=== PATIENT | female | born 1955 | race Caucasian/White ===

== ENCOUNTER 2020-01-12 10:16 | Emergency (ER) | payer OTHER, MEDICAID, SELFPAY ==
[~2020-01-12] VITALS: Ht 162.6 cm; Wt 54.4 kg
[2020-01-12 10:48] VITALS: BP_SYST 118
--- NOTE | 2020-01-12 11:14 | NUR ---
Patient to ER bed 03 to gown for evaluation. Side rails up.
--- NOTE | 2020-01-12 11:30 | NUR ---
Pt came to ER via [facility] ambulance for congestion and low O2 saturation. Pt was placed on 5L O2 via nasal cannula by medics, O2 sat WNL.
[2020-01-12 11:35] LABS: BASOPHILS % (AUTO) 0.2 % (0.0-2.0); HEMATOCRIT 45.1 % (36-48); LYMPHOCYTES # (AUTO) 0.7 K/uL (1.0-5.5); LYMPHOCYTES % (AUTO) 5.1 % (20.5-51.5); MEAN CORPUSCULAR HEMOGLOBIN 30 pg (27-31); MEAN CORPUSCULAR HGB CONC 33 % (32-36); MEAN CORPUSCULAR VOLUME 90 fL (79.0-98.0); MONOCYTES % (AUTO) 7.1 % (1.7-9.3); NEUTROPHILS % (AUTO) 87.6 % (40.0-70.0); PLATELET COUNT (AUTO) 173 K/uL (130-430); RED CELL DISTRIBUTION WIDTH 13.9 % (9.0-15.0); WHITE BLOOD COUNT (AUTO) 13.7 K/uL (4.8-10.8)
--- NOTE | 2020-01-12 11:35 | NUR ---
STEFANO Thakur at bedside examining patient.
[2020-01-12 11:55] LABS: ALBUMIN 3.1 g/dL (3.4-4.8); CALCIUM 9.2 mg/dL (8.4-11.0); CREATININE 0.58 mg/dL (0.55-1.30); POTASSIUM 5.4 mmol/L (3.5-5.1); TOTAL BILIRUBIN 0.5 mg/dL (0.0-1.0)
[2020-01-12] MEDS ORDERED: NACL 0.9% 1,000 ML IV ONE (12:00)
--- NOTE | 2020-01-12 12:02 | NUR ---
Received a phone from Jasmin social services assistant requesting status of pt, phone number [phone], needs a call back in few hours , Andrew conservative sister [phone], Ta brother [phone]
[2020-01-12] MEDS ORDERED: SODIUM POLYSTYRENE SULFONATE 15 GM/60 ML UDBTL GT ONE (12:30)
[2020-01-12] MEDS ORDERED: PIPERACILLIN/TAZO 3.375 GM in NS 50 ML IV ONE (13:00)
--- NOTE | 2020-01-12 13:00 | NUR ---
Pt resting in [place], VSS, no distress at this time
[2020-01-12 13:01] LABS: BILIRUBIN,URINE NEGATIVE (NEGATIVE); BLOOD, URINE NEGATIVE (NEGATIVE); CLARITY/URINE SL CLOUDY (CLEAR); COLOR,URINE YELLOW (YELLOW); GLUCOSE,URINE NEGATIVE (NEGATIVE); KETONES,URINE 1+ (NEGATIVE); LEUKOCYTE ESTERASE ,URINE 3+ (NEGATIVE); NITRITE, URINE POSITIVE (NEGATIVE); PH,URINE 8.5 (5.0-8.0); PROTEIN URINE NEGATIVE (NEGATIVE)
[2020-01-12 13:10] LABS: BACTERIA,URINE MANY /HPF (None Seen); RBC,URINE 0-3 /HPF (0-3); WBC,URINE 20-50 /HPF (0-3)
[2020-01-12] MEDS ORDERED: PIPERACILLIN/TAZOBACTAM 3.375 GM/VIAL (ZOSYN) IV ONE (13:41)
--- NOTE | 2020-01-12 15:21 | NUR ---
TRANSFER INFO AWA PASTRANA RM: TELE 104 ACCEPTING: [facility] REPORT: [phone] [facility] ETA 1600
--- NOTE | 2020-01-12 15:33 | NUR ---
NO CHANGE IN MENTATION, TACHYPNEIC, WEARING SIMPLE MASK SAO2 98% 6LITERS
[2020-01-12 16:00] VITALS: BP_SYST 129
--- NOTE | 2020-01-12 16:00 | NUR ---
Patient to be transferred to . Is being transferred due to higher level of care. Receiving facility has accepting physician and available space. ER physician has signed transfer form. Patient or responsible democrat has agreed to transfer and signed form. Patient belongings inventoried and will be sent with patient. Copy of nursing notes, lab reports, EKG, Physicians Orders and X-rays to be sent with patient. Report called to at receiving facility. Receiving physician is . ambulance service has been called for transfer. ETA is .
--- NOTE | 2020-01-14 16:04 | NUR ---
Received culture results from lab. pt was transfered to [facility]. TT pt's nurse Regina, reported patient is receiving Vanco and Zosyn IV currently.
== END 2020-01-12 16:00 | disposition short-term general hospital (02) ==
LOC: SED 10:16
DX: E87.1 Hypo-osmolality and hyponatremia (principal); E87.6 Hypokalemia; N39.0 Urinary tract infection, site not specified; R09.02 Hypoxemia; E07.9 Disorder of thyroid, unspecified; G20 Parkinson's disease; Z88.8 Allergy status to other drugs, medicaments and biological substances; Z20.828 Contact with and (suspected) exposure to other viral communicable diseases
CPT/HCPCS: 36415; 36600; 71045; 80053; 81000; 82803; 83605; 83880; 84484; 85025; 86710; 87040; 87086; 93005; 96365; 99285; J2543; J7030; U0003; 87186-TC